=== PATIENT | female | born 1990 | race African-American/Black ===

== ENCOUNTER 2016-09-30 15:00 | Emergency (ER) | payer SELFPAY ==
[2016-09-30 15:42] VITALS: BP 134/85
--- NOTE | 2016-09-30 15:51 | ER Document Report ---
ED Medical Screen (RME) - General Stated Complaint: VAGINAL BLEEDING Time seen by provider: 15:49 Mode of Arrival: Ambulatory Information source: Patient Notes: 26-year-old female with history of PCOS lasts only has periods of one or twice a year started one on September 17 prior to starting control pills that her doctor prescribed for her to try to regulate her periods. She is 0. She is here today because of heavy bleeding and clotting for 2 weeks and pelvic cramping. No history of STDs. No vaginal discharge with an odor. No dysuria. No fever. She did have some vomiting yesterday some dizziness. TRAVEL OUTSIDE OF THE [place] IN LAST 30 DAYS: No - Related Data Allergies/Adverse Reactions: Sulfa (Sulfonamide Antibiotics) Allergy (Verified 09/30/16 15:46) sulfamethoxazole [From [facility]ra] Allergy (Verified 09/30/16 15:46) trimethoprim [From [facility]] Allergy (Verified 09/30/16 15:46) Physical Exam - Vital signs Vitals: Temp Pulse Resp BP Pulse Ox 98.1 F 66 16 134/85 H 98 09/30/16 15:40 09/30/16 15:40 09/30/16 15:40 09/30/16 15:40 09/30/16 15:40 Course - Vital Signs Vital signs: Temp Pulse Resp BP Pulse Ox 98.1 F 66 16 134/85 H 98 09/30/16 15:40 09/30/16 15:40 09/30/16 15:40 09/30/16 15:40 09/30/16 15:40
[2016-09-30 16:23] LABS: ABSOLUTE EOSINOPHILS # (AUTO) 0.1 10^3/uL (0.0-0.6); ABSOLUTE LYMPHOCYTES (AUTO) 2.8 10^3/uL (0.5-4.7); ABSOLUTE MONOCYTES (AUTO) 0.4 10^3/uL (0.1-1.4); ABSOLUTE NEUT (AUTO) 2.8 10^3/uL (1.7-8.2); BASOPHILS % (AUTO) 0.8 % (0-2); EOSINOPHILS % (AUTO) 1.7 % (0-6); HEMATOCRIT 39.5 % (36.0-47.0); HEMOGLOBIN 13.4 g/dL (12.0-15.5); HGB HCT DIFFERENCE 0.7; LYMPHOCYTES % (AUTO) 46.3 % (13-45); MEAN CORPUSCULAR HEMOGLOBIN 28.2 pg (27.0-33.4); MEAN CORPUSCULAR HGB CONC 33.9 g/dL (32.0-36.0); MEAN CORPUSCULAR VOLUME 83 fl (80-97); RED BLOOD COUNT 4.75 10^6/uL (3.72-5.28); RED CELL DISTRIBUTION WIDTH 12.6 % (11.5-14.0); SEGMENTED NEUTROPHILS % (AUTO) 45.2 % (42-78); WHITE BLOOD COUNT 6.1 10^3/uL (4.0-10.5)
[2016-09-30 16:38] LABS: APPEARANCE,URINE CLOUDY; BILIRUBIN,URINE NEGATIVE (NEGATIVE); GLUCOSE, URINE NEGATIVE (NEGATIVE); KETONES,URINE NEGATIVE (NEGATIVE); LEUKOCYTE ESTERASE,URINE TRACE (NEGATIVE); NITRITE,URINE NEGATIVE (NEGATIVE); PROTEIN,URINE 100 mg/dL (NEGATIVE); URINE SPECIFIC GRAVITY 1.028; UROBILINOGEN,URINE NEGATIVE mg/dL (<2.0)
[2016-09-30 18:04] LABS: CHLAM PCR NOT DETECTED (NOT DETECT)
--- NOTE | 2016-09-30 19:02 | ER Document Report ---
ED General - General Chief Complaint: Vag Bleeding, +preg <12wks Stated Complaint: VAGINAL BLEEDING Mode of Arrival: Ambulatory TRAVEL OUTSIDE OF THE [place] IN LAST 30 DAYS: No - Related Data Allergies/Adverse Reactions: Sulfa (Sulfonamide Antibiotics) Allergy (Verified 09/30/16 15:46) sulfamethoxazole [From Septra] Allergy (Verified 09/30/16 15:46) trimethoprim [From [facility]ra] Allergy (Verified 09/30/16 15:46) Past Medical History - General Information source: Patient - Social History Smoking Status: Never Smoker Chew tobacco use (# tins/day): No Frequency of alcohol use: None Drug Abuse: None Family History: None Patient has suicidal ideation: No Patient has homicidal ideation: No Renal/ Medical History: Denies: Hx Peritoneal Dialysis Physical Exam - Vital signs Vitals: Temp Pulse Resp BP Pulse Ox 98.1 F 66 16 134/85 H 98 09/30/16 15:40 09/30/16 15:40 09/30/16 15:40 09/30/16 15:40 09/30/16 15:40 Course - Re-evaluation Re-evalutation: 09/30/16 19:07 Presentation is most consistent with dysfunctional uterine bleeding and otherwise well-appearing patient. Her hemoglobin was within normal limits. She is not . No tachycardia or hypotension. Examination is otherwise unremarkable. She denies bleeding through more than 2 pads an hour at any point in time. No indication for ultrasound at this time based on benign exam, vitals and laboratories. No active bleeding at this time. Patient will be started on oral control pills to help discontinue the bleeding. She has been encouraged to follow-up with [facility]. Return precautions have been discussed. - Vital Signs Vital signs: Temp Pulse Resp BP Pulse Ox 98.1 F 66 16 134/85 H 98 09/30/16 15:40 09/30/16 15:40 09/30/16 15:40 09/30/16 15:40 09/30/16 15:40 - Laboratory Result Diagrams: 09/30/16 15:55 Laboratory results interpreted by me: 09/30/16 09/30/16 15:55 15:55 Lymphocytes % 46.3 H Urine Protein 100 H Urine Blood LARGE H Ur Leukocyte Esterase TRACE H Discharge - Discharge Clinical Impression: Dysfunctional uterine bleeding Condition: Good Disposition: HOME, SELF-CARE Additional Instructions: You were seen today for dysfunctional uterine bleeding. This is when you have vaginal bleeding and abdominal cramping off of your normal menstrual cycle. You have been started on control pills to help regulate your cycle and control your symptoms. You need to follow-up with [facility] or your primary care physician the next 1-3 days. Return immediately if you worsening pain, you began bleeding through more than 2 pads per hour for more than 3 hours, you pass out, have persistent vomiting, develop a fever greater than 100.4F, or any other symptoms that are concerning to you. Prescriptions: Norgestimate-Ethinyl Estradiol [Sprintec 28 Day Tablet] 1 packet PO DAILY #2 packet
--- NOTE | 2016-09-30 19:25 | ER Document Report ---
Doctor's Note Notes: 09/30/16 19:25 I did not see her participate in the care of this patient. She was not located in the room that she had been assigned when I went to assess her. She eloped prior to being evaluated by me.
== END 2016-09-30 19:20 | disposition left against medical advice (07) ==
LOC: ER 15:00
DX: N93.9 Abnormal uterine and vaginal bleeding, unspecified (principal); E28.2 Polycystic ovarian syndrome; R10.2 Pelvic and perineal pain; R11.10 Vomiting, unspecified; R42 Dizziness and giddiness; Z88.2 Allergy status to sulfonamides; Z88.1 Allergy status to other antibiotic agents; Z79.3 Long term (current) use of hormonal contraceptives; Z53.20 Procedure and treatment not carried out because of patient's decision for unspecified reasons
CPT/HCPCS: 36415; 81001; 84703; 85025; 86850; 86900; 86901; 87491; 87591; 99281